=== PATIENT | female | born 2005 | race Caucasian/White ===

== ENCOUNTER 2024-04-01 14:26 | Emergency (ER) | payer BC, SELFPAY ==
[2024-04-01 14:35] VITALS: BP 109/89
[2024-04-01] MEDS: TYLENOL 650 MG PO (14:54)
[2024-04-01 15:18] LABS: COVID-19 Antigen Negative (Negative)
--- NOTE | 2024-04-01 16:13 | ED.GENMED ---
History of Present Illness
General
Chief Complaint: Fever
Source: patient and family
Exam Limitations: none
Time Seen by Provider: 04/01/24 15:47
History of Present Illness
History of Present Illness:
18yoF with no significant past medical history presenting with her mother for evaluation of flu-like symptoms x 2-3 days. Symptoms include cough, sore throat, and fevers. She also has not had much of an appetite but has been drinking fluids. She
went to urgent care today and was found to be tachycardic with heart rate in the 130s and was referred to the ED for possible sepsis. No testing was done at urgent care. Patient has not taken anything [id number] today. She denies any
vomiting, diarrhea, chest pain, shortness of breath. No known sick contacts or recent travel. She is not currently on any prescription medications.
Phy Exam
General Physical Exam
General Presentation: well appearing and no apparent distress
General age: appears stated age
General Skin: warm and dry
General Habitus: normal
General Mental: alert
ENT Exam
ENT Exam: TM's normal, pharynx normal, neck supple and normocephalic
Cardiovascular Exam
Cardiovascular Exam: no murmur and tachycardia
Pulmonary Exam
Pulmonary Exam: lungs clear, no respiratory distress, no rales, no crackles and no rhonchi
Neurological Exam
Neurological Exam: alert
Dann Coma Scale
Eye Opening: Spontaneous
Verbal Response: Oriented
Motor Response: Obeys Commands
GCS Total Score: 15
Skin Exam
Skin Exam: normal color and warm/dry
Psychiatric Exam
Psychiatric Exam: normal mood/affect
Sepsis
Sepsis Screening
Sepsis Assessment: Sepsis Ruled Out
Sepsis Screen
Sepsis Screen: Sepsis Ruled Out
Date: 04/01/24
Time: 22:42
Course
Orders/Labs/Results
Orders:
Orders
04/01/24 14:51
COVID-19 Antigen Urgent
Source: Nasal Swab
Influenza A+B Rapid Molecular Urgent
DIONI Source: Nasal Swab
Specimen Description:
Acetaminophen [Tylenol] 650 mg .ROUTE .STK-MED ONE
04/01/24 14:54
Acetaminophen [Tylenol] 650 mg PO NOW STA
Vital Signs
Initial and Last Documented VS:
Initial Vital Signs
Temp Pulse Resp BP Pulse Ox
102 F H 132 18 109/89 98
04/01/24 14:35 04/01/24 14:35 04/01/24 14:35 04/01/24 14:35 04/01/24 14:35
Last Documented Vital Signs
Temp Pulse Resp BP Pulse Ox
99.8 F 118 16 119/84 98
04/01/24 16:19 04/01/24 16:19 04/01/24 16:19 04/01/24 16:19 04/01/24 16:19
MDM/Problems Addressed
Differential Diagnosis Includes:
18yoF here with flu-like symptoms x 2 days. Patient went to urgent care [facility] and was sent here for tachycardia. Temperature 102 on arrival and HR 132. Remainder of vitals are stable. She is well appearing in no acute distress. Exam is reassuring.
Differential diagnosis includes but is not limited to: COVID, influenza, dehydration
Viral swabs obtained in triage and she is positive for influenza A. Heart rate improved to 118 after Tylenol administration. Tachycardia likely 2/2 fever and acute illness. No indication for further workup at this time. Supportive care discussed.
Advised close f/u with PCP and strict ED return precautions discussed. Patient in agreement with plan and was discharged in stable condition.
*Critical Care Note
Total Time (30-74mins, 75-104mins- exclusive of procedures): Not Applicable
ED Attending Note
-
Portions of this chart may have been created with voice recognition software.� Occasional wrong word or��sound alike� substitutions may have occurred due to the inherent limitations of voice recognition software.
Discharge Plan
Departure
Patient Disposition: Home (Routine Discharge)
Date of Disposition: 04/01/24
Time of Disposition: 16:38
Patient with high blood pressure during this ER visit?: No
Discharge Problem:
Influenza A
Instructions: Flu in adults - ED discharge instructions
Referrals:
Evita Etienne PA-C [Family Provider] -
Stand Alone Forms: Return to Work
Activity Restrictions/Additional Instructions:
Drink plenty of fluids and rest. Take Tylenol and ibuprofen as needed for fevers/body aches.
Please follow-up with your family doctor. Return to the ER with any worsening symptoms or trouble breathing.
Interventions
Interventions:
*Risk Screen - Suicide Last Done: 04/01/24 14:35
*General Assessment Last Done: 04/01/24 14:35
*Neglect/Abuse Screening Last Done: 04/01/24 14:35
*ED COVID-19 Vaccine History Last Done: 04/01/24 14:35
*Nursing Disposition Last Done: 04/01/24 16:46
ED- Neurological Assessment Last Done: 04/01/24 16:20
ED-Skin Assessment Last Done: 04/01/24 16:20
Discharge Date and Time
Discharge Date/Time: 04/01/24 16:46
Print Language: CAPE [place]
[2024-04-01 16:19] VITALS: BP 119/84
== END 2024-04-01 16:46 | disposition home or self-care (01) ==
LOC: EMR 14:26
PROVIDERS: Emergency Medicine; EMERGENCY PHYSICIAN Student in an Organized Health Care Education/Training Program; FAMILY PHYSICIAN Physician Assistant
DX: J10.1 Influenza due to other identified influenza virus with other respiratory manifestations (principal)
CPT/HCPCS: 99283; 87502; 87811